=== PATIENT | female | born 1940 | race Caucasian/White ===

== ENCOUNTER 2016-11-20 12:34 | Outpatient (CLI) ==
--- NOTE | 2016-11-20 13:04 | DI ---
EXAM: RIGHT HAND, 3 VIEWS HISTORY: Right hand pain FINDINGS: No comparison. The bones appear demineralized. There is relatively diffuse arthropathy with some sparing of the intercarpal and the carpometacarpal joints. Degree of arthropathy is mild for the most part although more advanced at the DIP joints. There is no fracture or joint dislocati on. 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
== END 2016-11-20 12:35 | disposition home or self-care (01) ==
LOC: RAD 12:34
PROVIDERS: ATTEND Family Medicine
DX: M79.641 Pain in right hand (principal); I10 Essential (primary) hypertension; J44.9 Chronic obstructive pulmonary disease, unspecified; I50.32 Chronic diastolic (congestive) heart failure; E78.2 Mixed hyperlipidemia; N39.3 Stress incontinence (female) (male); F51.01 Primary insomnia